=== PATIENT | male | born 1955 | race Caucasian/White ===

== ENCOUNTER → 2016-10-02 | Outpatient (CLI) | payer BC | LOC: GMAL 10:57 | PROVIDERS: ATTEND Family Medicine | DX: Z12.5 Encounter for screening for malignant neoplasm of prostate (principal) ==

== ENCOUNTER → 2016-10-02 | Outpatient (CLI) | payer BC | LOC: LAB.O 15:10 | PROVIDERS: ATTEND Family Medicine | DX: R74.0 Nonspecific elevation of levels of transaminase and lactic acid dehydrogenase [LDH] (principal) ==

== ENCOUNTER 2017-09-15 06:00 | Day surgery (SDC) | payer BC ==
[2017-09-15 09:32] VITALS: BP 112/74; TEMP 97.9; O2SAT 93
[2017-09-15] MEDS ORDERED: fentaNYL CITRATE INJ 50 MCG/ML AMP IV ONE (10:00)
[2017-09-15] MEDS ORDERED: PROPOFOL 200 MG/20 ML VIAL IV ONE (10:00)
[2017-09-15] MEDS ORDERED: MIDAZOLAM INJ 2 MG/2 ML VIAL IV ONE (10:00)
[2017-09-15] MEDS ORDERED: LIDOCAINE 1% 10 ML VIAL INJ ONE (10:00)
--- NOTE | 2017-09-15 10:16 | OP ---
DATE OF PROCEDURE: 09/15/17 PREOPERATIVE DIAGNOSIS: 1. History of colonic polyps. 2. Family history of colon cancer in his mother. POSTOPERATIVE DIAGNOSIS: 1. Rare sigmoid diverticula. 2. 0.25 by 0.25 cm cecal polyp, biopsied times three to obliteration. 3. 0.25 by 0.25 cm rectal polyp, biopsied times three to obliteration. 4. Anastomosis site at around 25 cm. PROCEDURE: 1. Colonoscopy. SURGEON: Govind Hernandez MD. ESTIMATED BLOOD LOSS: Less than 1 mL. COMPLICATIONS: No immediate complications. ANESTHESIA: Versed 2 mg, fentanyl 1 mL, propofol 3600 mg administered intravenously using monitored anesthesia care by Blake Del Valle CRNA. TECHNIQUE: After informed consent was obtained from the patient, the patient was taken to the Endoscopy Suite and placed in the left lateral decubitus position. Incremental doses of Versed, fentanyl and propofol were given until adequate conscious was obtained. Once obtained, digital rectal examination was performed which showed a mildly enlarged prostate without suspicious nodules. Vital signs were monitored throughout the procedure. Supplemental oxygen was administered throughout the procedure. After digital rectal examination was performed, the colonoscope was then advanced into the patient's rectum and up through the distal sigmoid, descending, transverse and ascending colon to the level of the cecum. There was a little bit of looping noted when we reached the ascending colon, but the cecum was reached and the usual cecal landmarks were identified and photographed. I could not enter the terminal ileum, however. Overall, the bowel prep was quite good. In the distal cecal or proximal ascending, there was a very small polyp noted and biopsied times three to obliteration. It was submitted in its own container. No other abnormalities were noted until the distal rectum and the same size polyp was noted and biopsied times three to obliteration. The anastomosis site was presumed to be right around 25 to 28 cm and looked good. In the rectum, upon retroflexion, there were grade 1 internal hemorrhoids. The colonoscope was then unretroflexed and air was suctioned out of the patient's rectum. The patient tolerated the procedure well without immediately complications. PLAN: Given his family history of colon cancer, we will need to repeat his colonoscopy in no less than five years. #[id number] [facility]
== END 2017-09-15 09:20 | disposition home or self-care (01) ==
LOC: AMB 06:00
PROVIDERS: ATTEND Family Medicine
DX: Z12.11 Encounter for screening for malignant neoplasm of colon (principal); D12.0 Benign neoplasm of cecum; D12.7 Benign neoplasm of rectosigmoid junction; K57.30 Diverticulosis of large intestine without perforation or abscess without bleeding; K64.0 First degree hemorrhoids; I10 Essential (primary) hypertension; E11.9 Type 2 diabetes mellitus without complications; E66.9 Obesity, unspecified; F17.220 Nicotine dependence, chewing tobacco, uncomplicated; Z86.010 Personal history of colon polyps; Z80.0 Family history of malignant neoplasm of digestive organs; Z79.899 Other long term (current) drug therapy
CPT/HCPCS: 00810; 36416; 45380; 82948; J2250; J3010; J3490

== ENCOUNTER → 2017-10-16 | Outpatient (CLI) | payer BC | END | disposition home or self-care (01) | LOC: GMAL 11:10 | PROVIDERS: ATTEND Family Medicine | DX: D50.8 Other iron deficiency anemias (principal); R23.3 Spontaneous ecchymoses ==